=== PATIENT | male | born 1955 | race Caucasian/White ===

== ENCOUNTER 2019-08-05 17:11 | Emergency (ER) | payer OTHER ==
[~2019-08-05] VITALS: Ht 180.3 cm; Wt 102.1 kg
[~2019-08-05 17:11] MED LIST: ACETAMINOPHEN325 M1 PO; IBUPROFEN 200200 M1 PO; ZOCOR 20 MG TAB20 M1 PO
[2019-08-05 17:18] VITALS: BP 197/107
[2019-08-05] MEDS ORDERED: LEVO-T100 MCG PO (17:20)
[2019-08-05] MEDS ORDERED: NORCO 5-325 TA1 EAC1 PO (17:29)
[2019-08-05] MEDS ORDERED: PENICILLIN V P500 MG PO (17:29)
== END 2019-08-05 18:01 | disposition home or self-care (01) ==
LOC: M.ERS 17:11
DX: K08.89 Other specified disorders of teeth and supporting structures (principal); E89.0 Postprocedural hypothyroidism; Z88.5 Allergy status to narcotic agent

== ENCOUNTER 2020-07-19 18:42 | Inpatient (IN) | payer OTHER ==
[~2020-07-19] VITALS: Ht 180.3 cm; Wt 98.0 kg
[2020-07-19] VITALS (10 sets, daily range): BP systolic 123–145; BP diastolic 68–90
[~2020-07-19 18:42] MED LIST changes: +LEVO-T100 MCG PO; +NORCO 5-325 TA1 EAC1 PO; +PENICILLIN V P500 MG PO
[2020-07-19 19:09] LABS: ABSOLUTE BASOPHILS 0.1 thou/uL (0.0-0.2); ABSOLUTE EOSINOPHILS 0.2 thou/uL (0.0-0.7); ABSOLUTE LYMPHOCYTES 3.1 thou/uL (0.8-5.3); ABSOLUTE MONOCYTES 1.5 thou/uL (0.0-1.2); ABSOLUTE NEUTROPHILS 8.7 thou/uL (1.6-8.1); BASOPHILS 0.9 %; EOSINOPHILS 1.3 %; HEMATOCRIT 45.4 % (42.0-52.0); HEMOGLOBIN 15.7 gm/dL (14.0-18.0); LYMPHOCYTES 22.8 %; MCH 33.9 pg (26.0-34.0); MCHC 34.5 g/dL (28.0-37.0); MCV 98.3 fL (80.0-100.0); MONOCYTES 11.2 %; MPV 8.1 fl. (7.2-11.1); NUCLEATED RBCS 0 /100WBC; PLATELET COUNT* 167 thou/uL (150-400); POLYS 63.8 %; RBC 4.62 mil/uL (4.50-6.00); RDW-CV 12.9 % (10.5-14.5); WBC 13.7 thou/uL (4.0-11.0)
[2020-07-19 19:21] LABS: APTT 25.5 Seconds (25.0-31.3); INR 1.1; PROTIME 11.4 Seconds (9.20-11.50)
[2020-07-19 19:27] LABS: CALCIUM 9.3 mg/dL (8.5-10.1); POTASSIUM 3.4 mmol/L (3.5-5.1)
[2020-07-19 19:51] LABS: ALBUMIN 3.9 g/dL (3.4-5.0); CK-MB MASS 12.1 ng/mL (<0.5-3.6); TOTAL BILIRUBIN 0.4 mg/dL (<0.1-1.0); TOTAL PROTEIN 7.7 g/dL (6.4-8.2)
[2020-07-20] VITALS (42 sets, daily range): BP systolic 82–156; BP diastolic 41–79
[2020-07-20 04:34] LABS: HEMATOCRIT 39.3 % (42.0-52.0); MCH 34.2 pg (26.0-34.0); MCHC 34.8 g/dL (28.0-37.0); MCV 98.2 fL (80.0-100.0); MPV 8.8 fl. (7.2-11.1); RDW-CV 13.1 % (10.5-14.5); WBC 13.9 thou/uL (4.0-11.0)
[2020-07-20 04:41] LABS: CALCIUM 8.4 mg/dL (8.5-10.1); CREATININE 0.9 mg/dL (0.6-1.3); POTASSIUM 3.9 mmol/L (3.5-5.1)
[2020-07-20 04:50] LABS: HEMOGLOBIN 13.7 gm/dL (14.0-18.0)
[2020-07-20 09:22] LABS: CHOLESTEROL 131 mg/dL (<200); HDL CHOLESTEROL 43 mg/dL (>40); LDL CHOLESTEROL 33 mg/dL (<100); TRIGLYCERIDE 277 mg/dL (<150); VLDL 55 mg/dL (<40)
[2020-07-20 09:25] LABS: SERUM ASSESSMENT Clear
--- NOTE | 2020-07-20 11:08 | 2DMMODE ---
[place] [address] 2 D/M-MODE ECHOCARDIOGRAM Name: NEHEMIAS MADDEN Room: [address] ADM IN M.R.#: [id number] Admission: 07/19/20 Attend Phys: Donna Garcia Discharge: Date of : 59 Date of Service: 07/20/20 1107 Report #: [id number] THIS REPORT FOR: cc: HEDY - No family physician/PCP HEDY - No family physician/PCP Jeronimo Mckinnon MD [facility] ~ APPROVED REPORT Study performed: 07/20/2020 09:13:06 EXAM: Comprehensive 2D, Doppler, and color-flow Echocardiogram Patient Location: Bedside BSA: 2.18 HR: 71 bpm BP: 124/76 mmHg Other Information Study Quality: Adequate Indications Code STEMI 2D Dimensions IVSd: 10.61 (7-11mm) LVOT Diam: 22.46 (18-24mm) LVDd: 45.51 mm PWd: 10.20 (7-11mm) Ascending Ao: 27.29 (22-36mm) LVDs: 30.61 (25-40mm) Aortic Root: 29.73 mm Volumes Left Atrial Volume (Systole) LA ESV Index: 28.50 mL/m2 Aortic Valve AoV Peak Avni.: 1.46 m/s AO Peak Gr.: 8.49 mmHg LVOT Max P.04 mmHg AO Mean Gr.: 3.93 mmHg LVOT Mean P.00 mmHg LVOT Max V: 1.12 m/s AO V2 VTI: 23.58 cm LVOT Mean V: 0.63 m/s GERALDO (VTI): 3.07 cm2 LVOT V1 VTI: 18.26 cm Mitral Valve E/A Ratio: 1.17 [place] [address] 2 D/M-MODE ECHOCARDIOGRAM Name: NEHEMIAS MADDEN Room: [address] IN M.R.#: [id number] Admission: 07/19/20 Attend Phys: Donna Garcia Discharge: Date of : 59 Date of Service: 07/20/20 1107 Report #: [id number] MV Decel. Time: 159.54 ms MV E Max Avni.: 0.69 m/s MV PHT: 46.27 ms MVA (PHT): 4.76 cm2 TDI E/Lateral E': 6.27 E/Medial E': 9.86 Medial E' Avni.: 0.07 m/s Lateral E' Avni.: 0.11 m/s Pulmonary Valve PV Peak Avni.: 0.85 m/s PV Peak Gr.: 2.89 mmHg Tricuspid Valve RAP Estimate: 5.00 mmHg TR Peak Gr.: 21.12 mmHg RVSP: 26.12 mmHg PA Pressure: 26.12 mmHg Left Ventricle The left ventricle is normal size. There is normal LV segmental wall motion. Mild concentric left ventricular hypertrophy. The left ventricular systolic function is normal. The left ventricular ejection fraction is within the normal range. LVEF is 55-60%. The left ventricular diastolic function is normal. Right Ventricle The right ventricle is normal size. The right ventricular systolic function is normal. Atria The left atrium size is normal. The right atrium size is normal. Aortic Valve Mild aortic valve sclerosis. No aortic regurgitation is present. There is no aortic valvular stenosis. Mitral Valve The mitral valve is normal in structure. There is no mitral valve regurgitation noted. No evidence of mitral valve stenosis. Tricuspid Valve The tricuspid valve is normal in structure. Trace tricuspid regurgitation[place] [address] 2 D/M-MODE ECHOCARDIOGRAM Name: NEHEMIAS MADDEN Room: [address] IN [facility]#: [id number] Admission: 07/19/20 Attend Phys: Donna Garcia Discharge: Date of : 59 Date of Service: 07/20/20 1107 Report #: [id number] The pulmonary valve is normal in structure. There is no pulmonic valvular regurgitation. Great Vessels The aortic root is normal in size. IVC is normal in size and collapses >50% with inspiration. Pericardium There is no pericardial effusion. <Conclusion> The left ventricle is normal size. Mild concentric left ventricular hypertrophy. The left ventricular systolic function is normal. The left ventricular ejection fraction is within the normal range. LVEF is 55-60%. The left ventricular diastolic function is normal. The right ventricle is normal size. The left atrium size is normal. Mild aortic valve sclerosis. No aortic regurgitation is present. There is no aortic valvular stenosis. The mitral valve is normal in structure. The tricuspid valve is normal in structure. IVC is normal in size and collapses >50% with inspiration. There is no pericardial effusion. There is normal LV segmental wall motion. <ELECTRONICALLY SIGNED> By: Jeronimo Mckinnon MD, FACC 07/20/20 1107 06 06 Jeronimo Mckinnon MD, FACC /INF
--- NOTE | 2020-07-20 15:10 | EKG ---
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: [place] : 1955 Requested By: Jeronimo Mckinnon Order Number: [id number] Reading MD: Jeronimo Mckinnon Measurements Intervals [place] Rate: 80 P: 59 [place]: 169 QRS: 3 QRSD: 91 T: 38 QT: 403 QTc: 465 Interpretive Statements Sinus rhythm Anterior infarct, age indeterminate Compared to ECG 07/19/2020 18:49:14 Myocardial infarct finding now present Early repolarization no longer present Global ST segment depression has diminished markedly Electronically Signed On 07-20-2020 15:10:41 CDT by Jeronimo Mckinnon [email or web address] <ELECTRONICALLY SIGNED> By: Jeronimo Mckinnon MD, FACC 07/20/20 1510 52 52 Jeronimo Mckinnon MD, FAC /EPI
--- NOTE | 2020-07-20 15:10 | EKG ---
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[place] : 1955 Requested By: Polo Jc Order Number: [id number] MD: Jeronimo Mckinnon Measurements Intervals [place] Rate: 76 P: 70 [place]: 188 QRS: -6 QRSD: 86 T: 82 QT: 412 QTc: 464 Interpretive Statements Sinus rhythm Probable left atrial enlargement Repol abnrm, severe global ischemia (LM/MVD) Baseline wander in lead(s) V2 No previous ECG available for comparison Electronically Signed On 07-20-2020 15:10:05 CDT by Jeronimo Mckinnon [email or web address] <ELECTRONICALLY SIGNED> By: Jeronimo Mckinnon MD, FAC 07/20/20 1510 48 48 Jeronimo Mckinnon MD, FAC /EPI
--- NOTE | 2020-07-20 15:12 | EKG ---
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: NICOLE : 1955 Requested By: Jeronimo Mckinnon Order Number: [id number] Reading MD: Jeronimo Mckinnon Measurements Intervals [place] Rate: 69 P: 48 [place]: 174 QRS: -14 QRSD: 87 T: 17 QT: 431 QTc: 462 Interpretive Statements Sinus rhythm Minimal ST depression, anterolateral leads Compared to ECG 07/19/2020 18:53:29 ST (T wave) deviation now present Myocardial infarct finding no longer present Electronically Signed On 07-20-2020 15:12:38 CDT by Jeronimo Mckinnon [email or web address] <ELECTRONICALLY SIGNED> By: Jeronimo Mckinnon MD, FACC 07/20/20 1512 49 49 Jeronimo Mckinnon MD, FAC /EPI
--- NOTE | 2020-07-20 15:13 | EKG ---
[place] [address] ELECTROCARDIOGRAM REPORT Name: KEITH MADDENDIE Room: [address] ADM IN M.R.#: [id number] Admission: 07/19/20 Attend Phys: Donna Garcia Discharge: Date of : 59 Date of Service: 07/20/20 0313 Report #: [id number] THIS REPORT FOR: //name// [facility] Test Date: 2020-07-20 Test Time: 03:13:18 Pat Name: NEHEMIAS MADDEN Department: Room: [address] Gender: M Senior Administrative Associate: NICOLE : 1955 Requested By: Jeronimo Mckinnon Order Number: [id number] Elvis MD: Jeronimo Mckinnon Measurements Intervals [place] Rate: 70 P: 49 [place]: 169 QRS: -21 QRSD: 86 T: 15 QT: 418 QTc: 452 Interpretive Statements Incomplete analysis due to missing data in precordial lead(s) Sinus rhythm Borderline left axis deviation Missing lead(s): V2 Compared to ECG 07/19/2020 22:50:44 ST (T wave) deviation no longer present Electronically Signed On 07-20-2020 15:13:37 CDT by Jeronimo Mckinnon [email or web address] <ELECTRONICALLY SIGNED> By: Jeronimo Mckinnon MD, FACC 07/20/20 1513 2 2 Jeronimo Mckinnon MD, FAC /EPI
--- NOTE | 2020-07-20 15:55 | CARD ---
[address] [address] CARDIAC CATH REPORT Name: NEHEMIAS MADDEN Room: [address] IN .R.#: [id number] Admission: 07/19/20 Attend Phys: Jeronimo Mckinnon MD, Discharge: Date of : 59 Report #: [id number] THIS REPORT FOR: //name// cc: HEDY Briscoe No family physician/PCP HEDY - No family physician/PCP ~ APPROVED REPORT Study performed: 07/19/2020 19:01:49 Patient Details Patient Status: ED Room #: The patient is a 65 year-old male Event Personnel Joie Tripp, Cornelia Middleton RN RN, Lucien Angela RTR Pratibha Elliott John Inspector Filter Tip Procedures Performed Art Access - R femoral artery, Left Heart Cath w/or w/o Coronaries LHC, ANDERSON Revasc AMI Total/Sub Single Left Main AMIREVSING, Hemostasis with Angioseal Indication Abnormal ECG, Non-STEMI , Chest pain Risk Factors Family History, Hypercholesterolemia, Tobacco History () Admission/Lab Medications/Medications given during procedure Heparin boluses then infusion; Aggrastat bolus and infusion Procedure Narrative The patient was brought emergently to the Cardiac Catheterization Laboratory and was prepped and draped in a sterile manner. The right femoral was infiltrated with 2% Lidocaine subcutaneous anesthesia. A Hawthorne 6 FR sheath was inserted into the right femoral artery. Coronary angiography was performed using coronary diagnostic catheters. The right coronary system was accessed and visualized with a 6F JR4 catheter. The left coronary system was accessed and visualized with a 6F JL4 catheter. The left ventricle was accessed and visualized with a 6F Pigtail catheter. Left ventricular/Aortic Valve gradient assessed via catheter pullback. Pre-demployment femoral angiogram was performed . Closure [place] [address] CARDIAC CATH REPORT Name: KEITH MADDENDIE Room: [address] IN [facility]#: [id number] Admission: 07/19/20 Attend Phys: Jeronimo Mckinnon MD, Discharge: Date of : 59 Report #: [id number] 6 Fr Angioseal STS. The patient tolerated the procedure well and there were no complications associated with the procedure. There was no hematoma. Intraoperative Conscious Sedation Sedation start time: 19:55 Case end Time: 21:22 Fentanyl 25 mcg Versed 2 mg Fluoro Time: 17.9 minutes Dose: DAP [id number] cGycm2 2321.21 mGy Contrast Type and Amount: Visipaque 390 ml Diagnostic Cath Left Main 90% tubular stenosis with prominent intraluminal thrombus LAD 80% proximal with 90% mid vessel stenosis Circumflex 60% proximal narrowing with 80% first marginal stenosis and 75% mid circumflex stenosis Right Coronary 95% stenosis of this dominant vessel beyond the acute margin with [id number] collaterals filling the distal right coronary artery Left Ventriculography Left Ventriculography was not performed. Hemodynamics The aortic pressure is 122/59 mmHg with a mean of 71 mmHg. The left ventricular pressure is 128/7 mmHg with a mean of mmHg. The left ventricular end diastolic pressure is 29 mmHg. There was no gradient across the aortic valve upon pullback. PCI Technique Lesion Anticoagulation was achieved with Heparin. Aggrastat 11 ml IV bolus given. Percutaneous coronary intervention was performed on the Left Main. The lesion stenosis prior to intervention was 90% with FRITZ 2 flow. A XBLAD SH 6FR Guide Catheter was used to engage the ostium. A BMW 190cm Interventional Guidewire was used to cross the lesion. BALLOON DILATION A Balloon catheter Trek RX 2.75 X 12 was inserted and inflated up to 12.00atm for 9seconds. Additional Inflation: 16.00atm for 7seconds[place] [address] CARDIAC CATH REPORT Name: NEHEMIAS MADDEN Room: [address] IN [facility]#: [id number] Admission: 07/19/20 Attend Phys: Jeronimo Mckinnon MD, Discharge: Date of : 59 Report #: [id number] A drug-eluting stent [place] RX Stent 2.11C30jk was inserted and inflated up to 16.00atm for 9seconds. Additional Inflation: 18.00atm for 6seconds. POST STENT DEPLOYMENT BALLOON DILATION A Balloon catheter NC Euphora 3.0 x 8 was inserted and inflated up to 20.00atm for 4seconds. NC Euphora 3.25x8 was inserted and inflated up to 16 manish for 6 seconds. Additional Inflation: 17.00 manish for 5 seconds. Final angiography reveals 10 % stenosis with FRITZ 3 flow. COMMENTS The PCI was technically complex by virtue of the acute coronary syndrome with 90% diffuse stenosis of the left main coronary artery, an unprotected vessel requiring emergent intervention. Conclusion 1. Acute non-ST segment elevation myocardial infarction with diffuse ST segment depression and persistent chest pain 2. Severe coronary artery disease characterized by the following: A 90% diffuse stenosis of the left main coronary artery with prominent intraluminal thrombus B 80% proximal with 90% mid LAD stenosis C 60% proximal circumflex narrowing with 80% first marginal narrowing and 75% mid circumflex stenosis D 95% distal right coronary stenosis with left to right collaterals filling the distal right coronary artery 2. Severe elevation of left ventricular end-diastolic pressure at rest 3. Successful PCI with deployment of drug-eluting stent at the site of 90% tubular left main coronary stenosis with 10% residual narrowing no residual thrombus and FRITZ-3 flow to the distal circulation Recommendations Cardiac [place] [address] CARDIAC CATH REPORT Name: NEHEMIAS MADDEN Room: [address] IN M.R.#: [id number] Admission: 07/19/20 Attend Phys: Jeronimo Mckinnon MD, Discharge: Date of : 59 Report #: [id number] Medications Administered Cardiac Rehabilitation Referral Heparin boluses that infusion; Aggrastat bolus and infusion Diagnostic Cath Approved by: Jeronimo Mckinnon MD Date/Time: 07/20/2020 15:51:59 <ELECTRONICALLY SIGNED> By: Jeronimo Mckinnon MD, FACC 07/20/20 1555 1555 1555Jofrankie Mckinnon MD, FACC /INF
[2020-07-21] VITALS (18 sets, daily range): BP systolic 83–112; BP diastolic 44–72
[2020-07-21 02:30] LABS: HEMATOCRIT 34.3 % (42.0-52.0); HEMOGLOBIN 11.9 gm/dL (14.0-18.0); MCHC 34.7 g/dL (28.0-37.0); MCV 97.9 fL (80.0-100.0); MPV 9.4 fl. (7.2-11.1); RBC 3.5 mil/uL (4.50-6.00); WBC 12.2 thou/uL (4.0-11.0)
[2020-07-21 02:43] LABS: CALCIUM 8.7 mg/dL (8.5-10.1); CREATININE 1.1 mg/dL (0.6-1.3); POTASSIUM 3.9 mmol/L (3.5-5.1); TROPONIN-I LEVEL 7.59 ng/mL (<0.06)
--- NOTE | 2020-07-21 10:15 | H ---
[address] [address] HISTORY AND PHYSICAL Name: NEHEMIAS MADDEN Room: [address] IN M.R.#: [id number] Admission: 07/19/20 Attend Phys: Jeronimo Mckinnon MD, Discharge: Date of : 59 Report #: [id number] THIS REPORT FOR: //name// cc: HEDY - Gris family physician/PCP HEDY - No family physician/PCP ~ CC: HEDY physician/PCP Jeronimo Mckinnon DATE OF SERVICE: 07/20/2020 HISTORY OF PRESENT ILLNESS: The patient is a 65-year-old male who presented to [facility] Emergency Room this evening with protracted chest discomfort. It came on approximately 2 hours earlier, there was noted waxing and waning with this discomfort since earlier in the week. He had a prominent anterior precordium particularly anterolateral ST segment depression and a mild increase in troponin I. The patient has a significant antecedent cigarette smoking history. He denies diabetes, uncertain about his cholesterol status. PHYSICAL EXAMINATION: GENERAL: Revealed a moderately distressed middle-aged male. VITAL SIGNS: Blood pressure 120/70, pulse rate 78, respirations 18 per minute. NECK: Jugular venous pressure normal. CHEST: Clear. CARDIAC: Reveals an S4 gallop. ABDOMEN: Mildly obese. EXTREMITIES: Satisfactorily perfused. EKG revealed prominent anterolateral ST segment depression. IMPRESSION: Acute coronary syndrome with protracted discomfort. RECOMMENDATIONS: Emergent catheterization. This was undertaken and revealed 90% diffuse left main coronary stenosis with intraluminal thrombus. There were tandem 80% proximal and 90% mid LAD stenosis with 70% mid circumflex and 80% first marginal narrowing. There was 90% stenosis of the right coronary artery beyond the acute margin with left to right collaterals filling the distal right coronary artery. The patient was clinically unstable with persistent prominent ST segment depression and I elected to proceed with PCI to the left main coronary artery, deploying one 2.75 x 12 mm Mark drug-eluting stent, post-dilated to 3.25 mm with a 20% residual narrowing and FRITZ 3 flow of the distal vessel. The patient was hemodynamically stable [place] [address] HISTORY AND PHYSICAL Name: NEHEMIAS MADDEN Room: [address] IN [facility].#: [id number] Admission: 07/19/20 Attend Phys: Jeronimo Mckinnon MD, Discharge: Date of : 59 Report #: [id number] noted before remitted. At this point, he was transferred to the ICU on a continuing infusion of heparin and Aggrastat. We will plan to review the cineangiograms with Cardiothoracic Surgery with consideration of multivessel coronary artery bypass grafting on a nonemergent basis. This was discussed with the patient and family. The patient is going to ICU on 07/19/2020. Critical care time is 45 minutes from 09:05 to 09:50 on 07/19/2020. <ELECTRONICALLY SIGNED> By: Jeronimo Mckinnon MD, FACC 07/21/20 1015 2152 [id number] Mckinnon MD, FACC /nt
[2020-07-22] VITALS (7 sets, daily range): BP systolic 94–123; BP diastolic 48–71
[2020-07-22 02:40] LABS: ABSOLUTE BASOPHILS 0.1 thou/uL (0.0-0.2); ABSOLUTE EOSINOPHILS 0.2 thou/uL (0.0-0.7); ABSOLUTE LYMPHOCYTES 2.1 thou/uL (0.8-5.3); ABSOLUTE MONOCYTES 1.5 thou/uL (0.0-1.2); ABSOLUTE NEUTROPHILS 6.9 thou/uL (1.6-8.1); BASOPHILS 0.6 %; EOSINOPHILS 1.7 %; HEMATOCRIT 32.9 % (42.0-52.0); HEMOGLOBIN 11.5 gm/dL (14.0-18.0); LYMPHOCYTES 19.7 %; MCH 33.9 pg (26.0-34.0); MCHC 34.9 g/dL (28.0-37.0); MCV 97.2 fL (80.0-100.0); MPV 9.1 fl. (7.2-11.1); NUCLEATED RBCS 0 /100WBC; PLATELET COUNT* 118 thou/uL (150-400); RBC 3.38 mil/uL (4.50-6.00); RDW-CV 13.2 % (10.5-14.5); WBC 10.8 thou/uL (4.0-11.0)
[2020-07-23] VITALS (22 sets, daily range): BP systolic 88–117; BP diastolic 43–80
[2020-07-23] MEDS ORDERED: CARVEDILOL3.125 MG PO (11:46)
[2020-07-23] MEDS ORDERED: LIPITOR 40 MG T40 M1 PO (11:46)
[2020-07-23] MEDS ORDERED: ASPIR 8181 MG PO (11:49)
--- NOTE | 2020-07-24 10:44 | D ---
[address] [address] DISCHARGE SUMMARY Name: NEHEMIAS MADDEN Room: [address] IN M.R.#: [id number] Admission: 07/19/20 Attend Phys: Narendra Mckinnon MD, Discharge: 07/23/20 Date of : 59 Report #: [id number] THIS REPORT FOR: //name// cc: HEDY - No family physician/PCP FAM - No family physician/PCP ~ CC: [facility] physician/PCP NARENDRA Mckinnon DATE OF SERVICE: 07/23/2020 The patient is discharged and transferred to [facility] on 07/23/2020. FINAL DISCHARGE DIAGNOSES: 1. Acute myocardial infarction. 2. Status post percutaneous transluminal coronary angioplasty with stenting of the left main coronary artery. 3. Severe multivessel coronary artery disease. 4. Tobacco abuse. 5. Hypertriglyceridemia. PROCEDURES: On 07/19/2020 -- left heart catheterization, selective coronary arteriography and percutaneous coronary intervention with stenting of a 90% diffuse left main coronary stenosis with intracoronary thrombus. The patient is a very pleasant 65-year-old male who presented with protracted chest pain on 07/19 to the [place] [facility]. He was noted to have diffuse ST-segment depression across the anterior precordium with persistent chest pain. He was taken emergently to the catheterization laboratory, which revealed 90% diffuse left main coronary stenosis with prominent intraluminal thrombus. There was 80% proximal, 90% mid LAD stenosis. There was moderately severe proximal circumflex narrowing with 80% first marginal stenosis. The right coronary artery was 95% narrow beyond the acute margin with left to right collaterals through the septum filling the distal right coronary artery. In this context, I performed emergent PCI with stenting of the left main coronary artery, post-dilating to 3.25 mm with 10-20% residual narrowing, FRITZ 3 flow of the distal vessel and no residual thrombus. Peak troponin was 25 units in the context of reperfusion. Postprocedural echocardiogram demonstrated an ejection fraction of 55-60% without segmental wall motion abnormalities. [place] [address] DISCHARGE SUMMARY Name: KEITH MADDENDIE Room: [address] IN ..#: [id number] Admission: 07/19/20 Attend Phys: Narendra Mckinnon MD, Discharge: 07/23/20 Date of : 59 Report #: [id number] noted. The patient was placed on infused antiplatelet therapy in the form of Aggrastat with continuing heparin and aspirin. He was not started on Plavix, Effient, or Brilinta in the context of the need for coronary artery bypass grafting in the near future. He was stable over the weekend on infused Aggrastat and continued aspirin without recurrent chest discomfort. He was continued on low-dose beta-blockade, aspirin, statin and IV Aggrastat. Pretransfer, he underwent duplex carotid imaging and MRSA and COVID tests were obtained as well as a urinalysis. Laboratory data pre-discharge revealed a sodium of 139, potassium of 3.9, BUN 14, creatinine 1.1, glucose 109. Hemoglobin 11.5; white blood cell count 10,800 with 118,000 platelets. There was moderate ecchymosis at the right femoral site, but no hematoma. He ambulated in the hallways without difficulty. Therefore, he was discharged and transferred to [facility] for planned coronary artery bypass grafting on 07/24/2020, on continued IV Aggrastat and oral aspirin as well as statin and beta-blockade. These issues were discussed in detail with Dr. Almendarez, Cardiothoracic Surgery Service at [facility]. Therefore, the patient is transferred to [facility] with a plan to proceed with coronary artery bypass grafting on 07/24/2020, assuming interim clinical stability. Discharge time is 40 minutes from 12:00-12:40 p.m. on 07/23/2020. <ELECTRONICALLY SIGNED> By: Narendra Mckinnon MD, FACC 07/24/20 1044 1631 [id number] Mckinnon MD, FACC /nt
== END 2020-07-23 13:40 | disposition short-term general hospital (02) | DRG 246 ==
LOC: M.ERS 18:42 → M.CL 18:42 → M.ICU 21:19 → M.TBA-CV 21:19 → M.ICU 21:37
PROVIDERS: Family Medicine; Registered Nurse; ADMIT Internal Medicine; ATTEND Internal Medicine
PROC: B211YZZ Fluoroscopy of Multiple Coronary Arteries using Other Contrast (ICD-10-PCS; principal; 2020-07-19)
PROC: 3E033PZ Introduction of Platelet Inhibitor into Peripheral Vein, Percutaneous Approach (ICD-10-PCS; principal; 2020-07-19)
PROC: 4A023N7 Measurement of Cardiac Sampling and Pressure, Left Heart, Percutaneous Approach (ICD-10-PCS; principal; 2020-07-19)
PROC: 027034Z Dilation of Coronary Artery, One Artery with Drug-eluting Intraluminal Device, Percutaneous Approach (ICD-10-PCS; principal; 2020-07-19)
DX: I21.4 Non-ST elevation (NSTEMI) myocardial infarction (principal); I50.33 Acute on chronic diastolic (congestive) heart failure; I25.10 Atherosclerotic heart disease of native coronary artery without angina pectoris; E89.0 Postprocedural hypothyroidism; E78.1 Pure hyperglyceridemia; Z20.828 Contact with and (suspected) exposure to other viral communicable diseases; E78.00 Pure hypercholesterolemia, unspecified; Z79.899 Other long term (current) drug therapy; Z88.4 Allergy status to anesthetic agent

== ENCOUNTER 2020-12-21 14:31 | Observation (INO) | payer OTHER ==
[~2020-12-21] VITALS: Ht 182.9 cm; Wt 107.8 kg
[~2020-12-21 14:31] MED LIST changes: +ALBUTEROL2.5 MG/0.5 INH; +ASPIR 8181 MG PO; +AUGMENTIN 875-1 EACH PO; +CALTRATE-600 W1 EACH PO; +CARVEDILOL3.125 MG PO; +CLOPIDOGREL75 MG PO; +GABAPENTIN 100100 MG PO; +LIPITOR 40 MG T40 M1 PO; +PEPCID20 MG PO; +PREDNISONE 20 M20 M1 PO; +XARELTO15 MG PO; +XARELTO20 MG PO
[2020-12-21 14:41] VITALS: BP 143/85
[2020-12-21] MEDS ORDERED: LOVASTATIN 20 M20 MG PO (14:44)
[2020-12-21 15:03] LABS: ABSOLUTE BASOPHILS 0.1 thou/uL (0.0-0.2); ABSOLUTE EOSINOPHILS 0.1 thou/uL (0.0-0.7); ABSOLUTE LYMPHOCYTES 1.6 thou/uL (0.8-5.3); ABSOLUTE MONOCYTES 1.3 thou/uL (0.0-1.2); ABSOLUTE NEUTROPHILS 9.6 thou/uL (1.6-8.1); EOSINOPHILS 0.7 %; HEMATOCRIT 40.6 % (42.0-52.0); HEMOGLOBIN 13.8 gm/dL (14.0-18.0); LYMPHOCYTES 12.6 %; MCH 30.7 pg (26.0-34.0); MCHC 34.1 g/dL (28.0-37.0); MONOCYTES 9.9 %; MPV 8.8 fl. (7.2-11.1); NUCLEATED RBCS 0 /100WBC; PLATELET COUNT* 188 thou/uL (150-400); POLYS 75.8 %; RBC 4.51 mil/uL (4.50-6.00); RDW-CV 13.7 % (10.5-14.5); WBC 12.7 thou/uL (4.0-11.0)
[2020-12-21 15:13] LABS: CALCIUM 9.3 mg/dL (8.5-10.1); CREATININE 0.9 mg/dL (0.6-1.3); POTASSIUM 3.9 mmol/L (3.5-5.1)
[2020-12-21 15:16] LABS: APTT 24.8 Seconds (25.0-31.3); PROTIME 11.1 Seconds (9.20-11.50)
[2020-12-21 15:28] LABS: ALBUMIN 3.6 g/dL (3.4-5.0); MAGNESIUM 2.1 mg/dL (1.8-2.4); TOTAL BILIRUBIN 0.3 mg/dL (<0.1-1.0); TOTAL PROTEIN 7.6 g/dL (6.4-8.2)
[2020-12-21 18:25] VITALS: BP 143/85
[2020-12-21 18:52] VITALS: BP 128/77
[2020-12-21 19:25] VITALS: BP 129/77
[2020-12-21] MEDS ORDERED: ASA81BEC PO (19:42)
[2020-12-21 23:19] VITALS: BP 95/58
[2020-12-22 04:40] VITALS: BP 121/72
[2020-12-22 05:42] LABS: HEMATOCRIT 38.6 % (42.0-52.0); HEMOGLOBIN 13.1 gm/dL (14.0-18.0); MCH 30.7 pg (26.0-34.0); MCHC 33.9 g/dL (28.0-37.0); MCV 90.6 fL (80.0-100.0); MPV 8.8 fl. (7.2-11.1); RBC 4.26 mil/uL (4.50-6.00); RDW-CV 14.1 % (10.5-14.5); WBC 10.4 thou/uL (4.0-11.0)
[2020-12-22 05:46] LABS: CALCIUM 9.5 mg/dL (8.5-10.1); CREATININE 0.9 mg/dL (0.6-1.3); POTASSIUM 4.4 mmol/L (3.5-5.1)
[2020-12-22 08:00] VITALS: BP 125/65
[2020-12-22 12:59] VITALS: BP 125/65
--- NOTE | 2020-12-23 10:38 | CON ---
[address] [address] CONSULTATION Name: NEHEMIAS MADDEN Room: [address] Samuel Swenson#: [id number] Admission: 12/21/20 Attend Phys: Onelia Burks MD Discharge: 12/22/20 Date of : 59 Report #: [id number] THIS REPORT FOR: cc: Osiris Kerr Anna S. DO ~ Alexandre Da Silva MD FAC INDICATION: Chest pain. HISTORY OF PRESENT ILLNESS: The patient is a very pleasant 65-year-old gentleman with history of coronary artery disease. He was initially seen in 06/2020 in the setting of acute coronary syndrome. At that time, he was found to have 90% diffuse left main stenosis with associated thrombus as well as diffuse disease involving the LAD, circumflex and right coronary artery. The left main coronary artery was emergently stented restoring adequate flow. The patient was then referred for coronary artery bypass grafting. In 07/2020, he underwent 4-vessel coronary artery bypass grafting at [facility]. The patient has done relatively well since that time. Cardiac risk factors include hyperlipidemia, and prior smoking. The patient presented to the hospital with upper chest and throat discomfort, worse with deep breath. This was somewhat different than the discomfort he had with his initial presentation with acute coronary syndrome in June. The patient states the pain was definitely worse with deep inspiration. His pain has since resolved. Cardiac enzymes were unremarkable x 3 sets. EKG shows sinus rhythm with no acute ST- or T-wave abnormality. PAST MEDICAL HISTORY: 1. Coronary artery disease. 2. Hyperlipidemia. 3. Hypothyroidism. 4. History of 4-vessel coronary artery bypass grafting, 07/2020. SOCIAL HISTORY: The patient quit smoking. He drinks alcohol occasionally. FAMILY HISTORY: Noncontributory. CURRENT MEDICATIONS: Aspirin 81 mg daily, Lipitor 40 mg daily, carvedilol 3.125 mg b.i.d., levothyroxine 125 mcg daily. ALLERGIES: HYDROCODONE. REVIEW OF SYSTEMS: A 14-point review of systems as per HPI, otherwise unremarkable. PHYSICAL EXAMINATION: [place] [address] CONSULTATION Name: NEHEMIAS MADDEN Room: [address] M.R.#: [id number] Admission: 12/21/20 Attend Phys: Onelia Burks MD Discharge: 12/22/20 Date of : 59 Report #: [id number] VITAL SIGNS: Stable. Blood pressure 125/65, pulse is 76. GENERAL: This is a pleasant gentleman in no distress. Mood and affect appropriate. HEENT: The patient is wearing glasses. Extraocular muscles intact. Mucous membranes are moist. NECK: Shows no jugular venous distention. There are no carotid bruits. CHEST: Reveals clear lung bhatti without wheezes or rales. CARDIOVASCULAR: Reveals a regular rhythm with normal S1 and S2. I do not appreciate gallop or murmur. ABDOMEN: Reveals normal bowel sounds. The abdomen is soft, nontender. EXTREMITIES: Shows no edema. Peripheral pulses are 2+ and easily palpable. SKIN: Dry. LABORATORY DATA: A 12-lead EKG shows sinus rhythm without acute ST or T-wave abnormality. Labs are reviewed. Electrolytes within normal limits. BUN 14, creatinine 0.9, serum glucose 114. LFTs within normal limits. Troponins less than 0.06 on 3 separate occasions. LDL cholesterol 33. White blood cell count 10.4, hemoglobin 13.1, platelet count 167,000. CTA of the chest shows no evidence of pulmonary embolism. Chest x-ray shows no acute process. IMPRESSION AND RECOMMENDATIONS: 1. Chest pain, atypical for cardiac pain. The patient has ruled out for myocardial infarction. I suspect this is more musculoskeletal. Pain has resolved at this time. 2. Coronary artery disease, presently stable. No further evaluation at this time. 3. Status post 4-vessel coronary artery bypass grafting in 07/2020. The patient has followup through our office in March. 4. Dyslipidemia. He has been at goal on current dose of atorvastatin and would continue as outlined above. 5. History of tobacco use. The patient has maintained cessation since the time of his initial infarct. At this point in time, the patient appears stable from a cardiac [place] [address] CONSULTATION Name: NEHEMIAS MADDEN Room: [address] Samuel Swenson#: [id number] Admission: 12/21/20 Attend Phys: Onelia Burks MD Discharge: 12/22/20 Date of : 59 Report #: [id number] believe he could be discharged to home and follow up with Cardiology as an outpatient. <ELECTRONICALLY SIGNED> By: Alexandre Da Silva MD, FACC 12/23/20 1038 1158 [id number] centerksenia Da Silva MD, FACC /nt
--- NOTE | 2020-12-24 09:34 | EKG ---
[place] [address] ELECTROCARDIOGRAM REPORT Name: KEITH MADDENDIE Room: [address] M.#: [id number] Admission: 12/21/20 Attend Phys: Oenlia Burks MD Discharge: 12/22/20 Date of : 59 Date of Service: 12/21/20 1439 Report #: [id number] THIS REPORT FOR: //name// [facility] ED Test Date: 2020-12-21 Test Time: 14:39:26 Pat Name: NEHEMIAS MADDEN Department: Room: [facility] Gender: M Operation Specialist: YAZMIN : 1955 Requested By: Elias Hoffman Order Number: [id number] MD: Yoel Elkins Measurements Intervals [place] Rate: 90 P: 60 OR: 163 QRS: -20 QRSD: 86 T: 38 QT: 344 QTc: 421 Interpretive Statements Sinus rhythm Borderline left axis deviation Baseline wander in lead(s) V1,V2,V6 Compared to ECG 07/20/2020 03:13:18 No significant changes Electronically Signed On 12-24-2020 9:34:12 CDT by Yoel Elkins [email or web address] <ELECTRONICALLY SIGNED> By: Yoel Elkins MD, FACC 12/24/20 0934 1439 1439 Yoel Elkins MD, FAC /EPI
== END 2020-12-22 13:35 | disposition home or self-care (01) ==
LOC: M.ERS 14:31 → M.TBA-ER 17:07 → M.2W 18:45
PROVIDERS: Emergency Medicine Emergency Medical Services; ADMIT Family Medicine; ATTEND Family Medicine
DX: R07.89 Other chest pain (principal); Z20.822 Contact with and (suspected) exposure to COVID-19; E78.5 Hyperlipidemia, unspecified; I25.2 Old myocardial infarction; E03.9 Hypothyroidism, unspecified; R79.89 Other specified abnormal findings of blood chemistry; R61 Generalized hyperhidrosis; Z95.5 Presence of coronary angioplasty implant and graft; Z79.899 Other long term (current) drug therapy; Z79.82 Long term (current) use of aspirin; Z88.5 Allergy status to narcotic agent